=== PATIENT | female | born 1960 | race Caucasian/White ===

== ENCOUNTER 2016-12-15 11:30 | Emergency (ER) | payer MEDICARE | END 2016-12-15 15:10 | disposition home or self-care (01) | LOC: D.ER 11:30 | DX: M54.12 Radiculopathy, cervical region (principal); F17.200 Nicotine dependence, unspecified, uncomplicated ==

== ENCOUNTER 2017-07-16 08:55 | Emergency (ER) | payer MEDICARE ==
[2017-07-16 09:35] LABS: BASOPHILS 0.6 % (0-2); EOSINOPHILS 1.7 % (0-7); HEMATOCRIT 35.8 % (36.0-48.0); HEMOGLOBIN 11.9 g/dL (12-16); IMMATURE GRANULOCYTES 0.1 % (0-5); MCH 31.6 pg (26.0-34.0); MCHC 33.2 g/dL (31.0-37.0); MCV 95.2 fL (80.0-100.0); MEAN PLATELET VOLUME 11.4 fL (7.4-10.4); MONOCYTES 8.1 % (2-11); NEUTROPHILS 68.5 % (40-80); PLATELET COUNT 298 10x3/uL (130-400); RBC 3.76 10x6/uL (4.00-5.40); RDW 13.7 % (11.5-14.5)
[2017-07-16 09:48] LABS: ALBUMIN 3.9 g/dL (3.4-5.0); ALKALINE PHOSPHATASE 91 U/L (46-116); ALT (SGPT) 9 U/L (10-68); CALC OSMOLALITY 276 mosm/kg (275-300); CALCIUM 9.1 mg/dL (8.5-10.1); CARBON DIOXIDE 24.2 mmol/L (21.0-32.0); CHLORIDE - SERUM 102 mmol/L (98-107); CREATININE - SERUM 0.9 mg/dL (0.6-1.3); GLUCOSE 94 mg/dL (74-106); POTASSIUM - SERUM 4.5 mmol/L (3.5-5.1); PROTEIN - SERUM 8.1 g/dL (6.4-8.2); SODIUM 138 mmol/L (136-145); UREA NITROGEN 14 mg/dL (7-18); eGFR NON AFRICAN AMERICAN 68 mL/min (90-120)
[2017-07-16 10:00] LABS: CKMB 0.3 U/L (0.0-3.6); CREATINE KINASE 33 UL (21-215); TROPONIN-I < 0.017 ng/mL (0.000-0.060)
== END 2017-07-16 11:08 | disposition home or self-care (01) ==
LOC: D.ER 08:55
PROVIDERS: Emergency Medicine
DX: R09.1 Pleurisy (principal); F17.200 Nicotine dependence, unspecified, uncomplicated

== ENCOUNTER → 2017-07-28 18:50 | Outpatient (CLI) | payer MEDICARE | LOC: D.MAMMO 05-21 09:45 | DX: Z12.31 Encounter for screening mammogram for malignant neoplasm of breast (principal) ==

== ENCOUNTER 2017-08-20 11:55 | Emergency (ER) | payer MEDICARE ==
[2017-08-20 13:06] LABS: CKMB 0.4 U/L (0.0-3.6); CREATINE KINASE 78 UL (21-215); MAGNESIUM - SERUM 1.9 mg/dL (1.8-2.4)
[2017-08-20 13:09] LABS: TROPONIN-I < 0.017 ng/mL (0.000-0.060)
== END 2017-08-20 14:10 | disposition home or self-care (01) ==
LOC: D.ER 11:55
PROVIDERS: Emergency Medicine
DX: R06.00 Dyspnea, unspecified (principal)

== ENCOUNTER 2019-03-31 09:00 | Outpatient (CLI) | payer MEDICARE, MEDICAID | END 2019-03-31 10:00 | disposition home or self-care (01) | LOC: D.MAMMO 09:00 | PROVIDERS: ATTEND Nurse Practitioner | DX: R31.21 Asymptomatic microscopic hematuria (principal); N64.4 Mastodynia ==

== ENCOUNTER → 2019-07-23 14:41 | Outpatient (CLI) | payer MEDICARE, MEDICAID | END | disposition home or self-care (01) | LOC: D.LABREF 14:41 | PROVIDERS: ATTEND Urology | DX: R31.9 Hematuria, unspecified (principal); R82.90 Unspecified abnormal findings in urine ==

== ENCOUNTER → 2019-09-13 22:29 | Outpatient (CLI) | payer MEDICARE, MEDICAID | END | disposition home or self-care (01) | LOC: D.LABREF 22:29 | PROVIDERS: ATTEND Internal Medicine | DX: R82.90 Unspecified abnormal findings in urine (principal); R31.9 Hematuria, unspecified ==

== ENCOUNTER 2019-09-23 10:59 | Inpatient (IN) | payer MEDICARE, MEDICAID ==
[2019-09-23] VITALS (9 sets, daily range): BP systolic 99–220; BP diastolic 55–85; Ht 152.4 cm; Wt 57.3 kg
[~2019-09-23] VITALS: Ht 152.4 cm; Wt 57.3 kg
[2019-09-23 11:36] LABS: BASOPHILS 0.7 % (0-2); EOSINOPHILS 1.2 % (0-7); HEMATOCRIT 35.5 % (36.0-48.0); HEMOGLOBIN 11.6 g/dL (12-16); IMMATURE GRANULOCYTES 0.1 % (0-5); LYMPHOCYTES 20.4 % (15-50); MCH 31.6 pg (26.0-34.0); MCHC 32.7 g/dL (31.0-37.0); MCV 96.7 fL (80.0-100.0); MEAN PLATELET VOLUME 11.3 fL (7.4-10.4); MONOCYTES 11.5 % (2-11); NEUTROPHILS 66.1 % (40-80); PLATELET COUNT 261 10x3/uL (130-400); RBC 3.67 10x6/uL (4.00-5.40); RDW 13.8 % (11.5-14.5); WBC 6.8 10x3/uL (4.8-10.8)
[2019-09-23 11:57] LABS: CALC OSMOLALITY 275 mosm/kg (275-300); CALCIUM 8.9 mg/dL (8.5-10.1); CHLORIDE - SERUM 102 mmol/L (98-107); CREATININE - SERUM 0.8 mg/dL (0.6-1.3); GLUCOSE 89 mg/dL (74-106); POTASSIUM - SERUM 4.2 mmol/L (3.5-5.1); SODIUM 138 mmol/L (136-145); UREA NITROGEN 15 mg/dL (7-18); eGFR NON AFRICAN AMERICAN 77 mL/min (90-120)
[2019-09-23 12:04] LABS: APTT 29.8 SECONDS (22.8-39.4)
[2019-09-23 12:14] LABS: ALKALINE PHOSPHATASE 103 U/L (30-120); ALT (SGPT) 7 U/L (10-68); BILIRUBIN - TOTAL 0.37 mg/dL (0.2-1.3); CKMB 0.5 U/L (0.0-3.6); CREATINE KINASE 61 UL (21-215); MAGNESIUM - SERUM 1.9 mg/dL (1.8-2.4); PROTEIN - SERUM 7.7 g/dL (6.4-8.2); TROPONIN-I < 0.017 ng/mL (0.000-0.060)
[2019-09-23 12:21] LABS: INR 0.93 (0.85-1.17); PROTIME 12.4 SECONDS (11.6-15.0)
--- NOTE | 2019-09-23 16:19 | NUR ---
TRANSFER FROM ER BY W/C. ANDREAINTED TO ROOM. CALL LIGHT IN REACH. WILL CONT. PLAN OF CARE.
[2019-09-23] MEDS ORDERED: GABAPENTIN300 MG PO (16:32)
[2019-09-23] MEDS ORDERED: SINEMET 25-1001 EAC1 PO (16:34)
[2019-09-23] MEDS ORDERED: LISINOPRIL5 MG PO (16:35)
[2019-09-23] MEDS ORDERED: NAMENDA5 MG PO (16:35)
[2019-09-23] MEDS ORDERED: LIPITOR20 MG PO (16:35)
[2019-09-23] MEDS ORDERED: SINGULAIR10 MG PO (16:36)
[2019-09-23 18:00] LABS: CKMB 0.2 U/L (0.0-3.6); CREATINE KINASE 55 UL (21-215)
[2019-09-23 18:01] LABS: TROPONIN-I < 0.017 ng/mL (0.000-0.060)
[2019-09-23 18:57] LABS: % SATURATION 17 % (15-55); IRON 50 ug/dl (35-150); TOTAL IRON BIND CAPACITY 293 ug/dl (260-445); UNSAT IRON BIND CAPACITY 243 ug/dl (150-375)
--- NOTE | 2019-09-23 19:42 | NUR ---
RECEIVED BEDSIDE REPORT. PATIENT IS ALERT AND ORIENTED, RESTING COMFORTABLY ON BED. RESPIRATIONS ARE EVEN AND UNLABORED. NO S/S OF DISTRESS. NO C/O PAIN. NEEDS MET. CALL LIGHT WITHIN REACH. WILL CPOC.
[2019-09-23 23:53] LABS: CKMB 0.4 U/L (0.0-3.6); CREATINE KINASE 54 UL (21-215)
[2019-09-23 23:55] LABS: TROPONIN-I < 0.017 ng/mL (0.000-0.060)
[2019-09-24] VITALS: BP 108/63
[2019-09-24 04:00] VITALS: BP 107/77
[2019-09-24 06:47] LABS: HEMATOCRIT 34.3 % (36.0-48.0); HEMOGLOBIN 11.2 g/dL (12-16); LYMPHOCYTES 22.3 % (15-50); MCH 31.5 pg (26.0-34.0); MCHC 32.7 g/dL (31.0-37.0); MCV 96.6 fL (80.0-100.0); MEAN PLATELET VOLUME 11.4 fL (7.4-10.4); MONOCYTES 11.9 % (2-11); NEUTROPHILS 62.8 % (40-80); PLATELET COUNT 268 10x3/uL (130-400); RBC 3.55 10x6/uL (4.00-5.40); RDW 13.8 % (11.5-14.5); WBC 6.1 10x3/uL (4.8-10.8)
[2019-09-24 07:19] LABS: ALBUMIN 3.7 g/dL (3.4-5.0); ALKALINE PHOSPHATASE 99 U/L (30-120); BILIRUBIN - TOTAL 0.43 mg/dL (0.2-1.3); CALC OSMOLALITY 274 mosm/kg (275-300); CALCIUM 8.6 mg/dL (8.5-10.1); CARBON DIOXIDE 26.4 mmol/L (21.0-32.0); CHLORIDE - SERUM 103 mmol/L (98-107); CKMB 0.1 U/L (0.0-3.6); CREATINE KINASE 53 UL (21-215); GLUCOSE 87 mg/dL (74-106); POTASSIUM - SERUM 4.8 mmol/L (3.5-5.1); PROTEIN - SERUM 7.1 g/dL (6.4-8.2); SODIUM 137 mmol/L (136-145); UREA NITROGEN 18 mg/dL (7-18); eGFR NON AFRICAN AMERICAN 60 mL/min (90-120)
[2019-09-24 07:23] LABS: ALT (SGPT) 17 U/L (10-68); TROPONIN-I < 0.017 ng/mL (0.000-0.060)
[2019-09-24 07:43] VITALS: BP 113/74
--- NOTE | 2019-09-24 11:30 | NUR ---
LEAVING FOR STRESS TEST BY W/C. WILL CONT. PLAN OF CARE.
[2019-09-24 11:51] VITALS: BP 117/66
[2019-09-24 15:52] VITALS: BP 112/70
--- NOTE | 2019-09-24 19:30 | NUR ---
INITIAL ROUNDS AND ASSESSMENT COMPLETED. PT RESTING IN BED. NO DISTRESS. CPOC.
[2019-09-24 20:30] VITALS: BP 118/69
--- NOTE | 2019-09-24 21:58 | NUR ---
BEDTIME MEDS GIVEN. PT RESTING, WATCHING TV.
--- NOTE | 2019-09-24 22:31 | NUR ---
BEDTIME SNACK PROVIDED. RESTING IN BED. CPOC.
[2019-09-25 00:30] VITALS: BP 98/63
[2019-09-25 04:30] VITALS: BP 100/67
--- NOTE | 2019-09-25 04:46 | NUR ---
PT C/O STILL NEEDING TO HAVE A BM. GAVE HER AM DOSE OF SENNA-LAX AND HER PROTONIX AT THIS TIME.
[2019-09-25 05:18] LABS: BASOPHILS 0.7 % (0-2); EOSINOPHILS 1.8 % (0-7); HEMATOCRIT 34.8 % (36.0-48.0); HEMOGLOBIN 11.2 g/dL (12-16); LYMPHOCYTES 25.9 % (15-50); MCH 30.8 pg (26.0-34.0); MCHC 32.2 g/dL (31.0-37.0); MCV 95.6 fL (80.0-100.0); MEAN PLATELET VOLUME 11.7 fL (7.4-10.4); MONOCYTES 10.3 % (2-11); NEUTROPHILS 61.3 % (40-80); PLATELET COUNT 278 10x3/uL (130-400); RBC 3.64 10x6/uL (4.00-5.40); RDW 13.7 % (11.5-14.5); WBC 5.6 10x3/uL (4.8-10.8)
[2019-09-25 05:41] LABS: ALBUMIN 3.7 g/dL (3.4-5.0); ANION GAP 13.9 mmol/L (8-16); BILIRUBIN - TOTAL 0.34 mg/dL (0.2-1.3); CARBON DIOXIDE 24.1 mmol/L (21.0-32.0); CREATININE - SERUM 0.9 mg/dL (0.6-1.3); MAGNESIUM - SERUM 2.1 mg/dL (1.8-2.4); PROTEIN - SERUM 7.8 g/dL (6.4-8.2)
--- NOTE | 2019-09-25 06:41 | NUR ---
PT RESTING. NO DISTRESS. REPORT TO ONCOMING NURSE.
--- NOTE | 2019-09-25 09:06 | NUR ---
AM MEDS GIVEN AT THIS TIME. PT RESTING COMFORTABLY IN BED, DENIES ANY NEEDS AT THIS TIME. LT FA IV SL. CALL LIGHT IN REACH, NAD NOTED, WILL CONTINUE TO MONITOR.
[2019-09-25 09:40] VITALS: BP 104/66
--- NOTE | 2019-09-25 10:09 | NUR ---
STOOL SAMPLE COLLECTED AND TAKEN TO LAB.
[2019-09-25 13:12] VITALS: BP 119/73
--- NOTE | 2019-09-25 13:37 | NUR ---
PROVIDED VERBAL AND WRITTEN DISCHARGE TEACHING TO PT WHO VERBALIZED UNDERSTANDING REGARDING TEACHING. D/C LT FA IV WITH CATHETER TIP INTACT. HEART MONITOR REMOVED AND TAKEN TO TANK BUILDER SUPERVISOR. PT WILL NOTIFY NURSE WHEN READY FOR WHEELCHAIR.
--- NOTE | 2019-09-25 14:31 | NUR ---
PT LEFT UNIT VIA WHEELCHAIR, WITH ALL BELONGINGS, NAD NOTED.
--- NOTE | 2019-09-26 09:17 | MORECARE ---
CASE MANAGEMENT DISCHARGE SUMMARY PATIENT: BEKAH WOODWARD MARVIN UNIT: [id number] ADM DATE: 09/23/19 AGE: 59 : 56 SEX: F ROOM/BED: D.2116 AUTHOR: KEON REDDING PHYSICIAN: REFERRING PHYSICIAN: HANSA CRAWLEY MD DATE OF SERVICE: 09/26/19 Discharge Plan Patient Name: BEKAH WOODWARD Facility: [facility]:[place] : 1960 Planned Disposition: Home Anticipated Discharge Date: Discharge Date: 09/25/2019 Expected LOS: 0 Initial Reviewer: [email or web address] Initial Review Date: 09/26/2019 Generated: 09/26/19 10:16 am Patient Name: BEKHA WOODWARD Page [id number] at 0917 All edits/amendments must be made on the electronic document DICTATION DATE: 09/26/19915 BANKRUPTCY LAW SPECIALIST: YOCASTA 09/26/19915 RPT#: [id number] DC DATE:09/25/19 STATUS: DIS IN [facility] [address] [place] [address] END OF REPORT
== END 2019-09-25 14:31 | disposition home or self-care (01) | DRG 311 ==
LOC: D.ER 10:59 → OBSVTIME 13:21 → D.M2 13:21
PROVIDERS: Family Medicine; ADMIT Family Medicine; ATTEND Family Medicine
DX: I20.0 Unstable angina (principal); G20 Parkinson's disease; I10 Essential (primary) hypertension; D64.9 Anemia, unspecified; F17.200 Nicotine dependence, unspecified, uncomplicated; E78.5 Hyperlipidemia, unspecified

== ENCOUNTER 2020-09-05 12:32 | Observation (INO) | payer MEDICARE, MEDICAID ==
[~2020-09-05] VITALS: Ht 152.4 cm; Wt 60.5 kg
[~2020-09-05 12:32] MED LIST: GABAPENTIN300 MG PO; LIPITOR20 MG PO; LISINOPRIL5 MG PO; NAMENDA5 MG PO; SINEMET 25-1001 EAC1 PO; SINGULAIR10 MG PO
[2020-09-05] MEDS ORDERED: GABAPENTIN300 MG PO (13:10)
[2020-09-05] MEDS ORDERED: ZOLOFT25 MG PO (13:13)
[2020-09-05] MEDS ORDERED: NAMENDA5 MG PO (13:13)
[2020-09-05] MEDS ORDERED: SINGULAIR10 MG PO (13:14)
[2020-09-05 13:32] VITALS: BP 171/78; Ht 152.4 cm; Wt 60.5 kg
[2020-09-05 13:33] LABS: BASOPHILS 0.7 % (0-2); EOSINOPHILS 1.1 % (0-7); HEMATOCRIT 36.8 % (36.0-48.0); HEMOGLOBIN 12.3 g/dL (12-16); IMMATURE GRANULOCYTES 0.1 % (0-5); LYMPHOCYTE ABS# 1.65 10x3/uL (1.18-3.74); LYMPHOCYTES 22.9 % (15-50); MCH 31.7 pg (26.0-34.0); MCHC 33.4 g/dL (31.0-37.0); MCV 94.8 fL (80.0-100.0); MEAN PLATELET VOLUME 11.3 fL (7.4-10.4); MONOCYTES 10.2 % (2-11); NEUTROPHIL ABS# 4.69 10x3/uL (1.56-6.13); PLATELET COUNT 304 10x3/uL (130-400); RBC 3.88 10x6/uL (4.00-5.40); WBC 7.2 10x3/uL (4.8-10.8)
[2020-09-05 13:40] LABS: ANION GAP 13.1 mmol/L (8-16); CALCIUM 9.2 mg/dL (8.5-10.1); CARBON DIOXIDE 26.7 mmol/L (21.0-32.0); CREATININE - SERUM 1.1 mg/dL (0.6-1.3); POTASSIUM - SERUM 3.8 mmol/L (3.5-5.1)
[2020-09-05 13:46] LABS: ALBUMIN 4.2 g/dL (3.4-5.0); BILIRUBIN - TOTAL 0.23 mg/dL (0.2-1.3); PROTEIN - SERUM 8.4 g/dL (6.4-8.2)
--- NOTE | 2020-09-05 13:48 | NUR ---
ARRIVED TO FLOOR. JUANITO MUIR SITED IV IN LEFT AC.
--- NOTE | 2020-09-05 14:15 | NUR ---
COULD NOT HOLD CONTRAST DOWN; VOMITING. TAKEN DOWN FOR SCANS.
[2020-09-05 16:00] VITALS: BP 141/64
--- NOTE | 2020-09-05 17:39 | NUR ---
RESTING IN BED. DENIES ANY NEEDS AT THIS TIME. WILL CONTINUE POC AND SAFETY PRECAUTIPONS. IV IN LEFT AC.
[2020-09-05 20:00] VITALS: BP 156/69
[2020-09-06] VITALS (7 sets, daily range): BP systolic 120–141; BP diastolic 68–82
--- NOTE | 2020-09-06 05:10 | NUR ---
I have reviewed this patient and I concur with the Shift Assessment completed by the Licensed Practical Nurse today this shift.
[2020-09-06 06:09] LABS: BASOPHILS 1.1 % (0-2); EOSINOPHILS 2.8 % (0-7); HEMATOCRIT 35.8 % (36.0-48.0); HEMOGLOBIN 11.8 g/dL (12-16); LYMPHOCYTE ABS# 1.41 10x3/uL (1.18-3.74); LYMPHOCYTES 25.9 % (15-50); MCH 31.1 pg (26.0-34.0); MCV 94.5 fL (80.0-100.0); MEAN PLATELET VOLUME 11.6 fL (7.4-10.4); MONOCYTES 12.5 % (2-11); NEUTROPHIL ABS# 3.14 10x3/uL (1.56-6.13); NEUTROPHILS 57.7 % (40-80); PLATELET COUNT 300 10x3/uL (130-400); RBC 3.79 10x6/uL (4.00-5.40); RDW 14.1 % (11.5-14.5); WBC 5.4 10x3/uL (4.8-10.8)
[2020-09-06 06:29] LABS: ALBUMIN 3.5 g/dL (3.4-5.0); ANION GAP 14.8 mmol/L (8-16); BILIRUBIN - TOTAL 0.33 mg/dL (0.2-1.3); CALCIUM 8.8 mg/dL (8.5-10.1); CARBON DIOXIDE 24.2 mmol/L (21.0-32.0); CREATININE - SERUM 0.9 mg/dL (0.6-1.3); PROTEIN - SERUM 7.3 g/dL (6.4-8.2)
--- NOTE | 2020-09-06 10:27 | NUR ---
PATIENT AAOX4 SITTING HIGH FOWLERS EATING BREAKFAST, RESP EVEN AND NON LABORED, NO S/S OF DISTRESS, MEDICATIONS ADMINISTERED WITH NO COMPLICATIONS, PAIENT STATES SHE FEELS OK BUT NEEDS TO HAVE A BOWEL MOVEMENT STILL, DR SUN IS NOTIFIED AND DUE TO HER DIVERTICULITIS WE HAVE TO TREAT WITH ORAL MEDS, PATIENT HAS NO FURTHER NEEDS AT THIS TIME, DIETER KUMAR
[2020-09-06 11:54] LABS: BILIRUBIN NEGATIVE (NEGATIVE); KETONE NEGATIVE (NEGATIVE); NITRITE NEGATIVE (NEGATIVE); UROBILINOGEN NORMAL mg/dL (< 2)
[2020-09-06 11:55] LABS: BACTERIA FEW HPF (NONE SEEN); SQUAMOUS EPITHELIAL OCC HPF (0-4); WHITE CELLS - URINE OCC HPF (0-4)
--- NOTE | 2020-09-06 13:31 | NUR ---
I have reviewed this patient and I concur with the Shift Assessment completed by the Licensed Practical Nurse today this shift.
--- NOTE | 2020-09-07 04:49 | NUR ---
I have reviewed this patient and I concur with the Shift Assessment completed by the Licensed Practical Nurse today this shift.
[2020-09-07 05:09] VITALS: BP 121/62
[2020-09-07 05:47] LABS: EOSINOPHILS 1.9 % (0-7); HEMATOCRIT 34.6 % (36.0-48.0); HEMOGLOBIN 11.2 g/dL (12-16); IMMATURE GRANULOCYTES 0.2 % (0-5); LYMPHOCYTE ABS# 1.48 10x3/uL (1.18-3.74); LYMPHOCYTES 28.7 % (15-50); MCH 30.8 pg (26.0-34.0); MCHC 32.4 g/dL (31.0-37.0); MCV 95.1 fL (80.0-100.0); MEAN PLATELET VOLUME 11.6 fL (7.4-10.4); MONOCYTES 12.4 % (2-11); NEUTROPHIL ABS# 2.88 10x3/uL (1.56-6.13); NEUTROPHILS 55.8 % (40-80); PLATELET COUNT 293 10x3/uL (130-400); RBC 3.64 10x6/uL (4.00-5.40); RDW 13.9 % (11.5-14.5); WBC 5.2 10x3/uL (4.8-10.8)
[2020-09-07 06:10] LABS: ALBUMIN 3.5 g/dL (3.4-5.0); ANION GAP 12.5 mmol/L (8-16); BILIRUBIN - TOTAL 0.23 mg/dL (0.2-1.3); CALCIUM 8.6 mg/dL (8.5-10.1); CARBON DIOXIDE 28.7 mmol/L (21.0-32.0); POTASSIUM - SERUM 4.2 mmol/L (3.5-5.1); PROTEIN - SERUM 7.2 g/dL (6.4-8.2)
[2020-09-07 08:17] VITALS: BP 131/61
[2020-09-07 11:36] VITALS: BP 145/76
[2020-09-07 15:58] VITALS: BP 138/69
--- NOTE | 2020-09-07 16:05 | NUR ---
FLEET ENEMA INSERTED AND PATIENT TOLERATED WITH MILD DISCOMFORT, PATIENT LEFT IN BATHROOM, CLIR
[2020-09-07] MEDS ORDERED: CYCLOBENZAPRINE10 MG PO (17:14)
[2020-09-07] MEDS ORDERED: PROTONIX40 MG PO (17:15)
[2020-09-07] MEDS ORDERED: Senokot-S Tablet PO (17:15)
[2020-09-07] MEDS ORDERED: FLAGYL500 MG PO (17:16)
[2020-09-07] MEDS ORDERED: OMNICEF300 MG PO (17:16)
[2020-09-07] MEDS ORDERED: MIRALAX17 GM PO (17:16)
== END 2020-09-07 18:58 | disposition home or self-care (01) ==
LOC: D.M2 12:32 → OBSVTIME 12:35 → D.M2 09-07 18:58
PROVIDERS: Family Medicine; ADMIT Family Medicine; ATTEND Family Medicine
DX: R10.32 Left lower quadrant pain (principal); G20 Parkinson's disease; E78.5 Hyperlipidemia, unspecified; I10 Essential (primary) hypertension; I20.0 Unstable angina